=== PATIENT | female | born 1950 | race Caucasian/White ===

== ENCOUNTER 2016-09-12 05:27 | Emergency (ER) | payer MEDICARE, BC ==
--- NOTE | ~2016-09-12 | CR63 ---
[facility] A Service of [facility] RADIOLOGY TEXT RESULTS PATIENT: DENTON ROLDAN LOCATION: [facility] : [birth year] UNIT #: [id number] AGE: [address]: Broderick Bleu SEX: F ORDER DR: [id number] [facility]. [place], [place] [address] [id number] MR#: [id number] Acc #: [id number] NAME: DENTON ROLDAN : 1950 SEX: F STUDY DATE/TIME: 09/12/2016 4:38 UNIT: [facility] ROOM: STUDY DESCRIPTION: CR Chest 2 View Attending Physician: Broderick Blue P.A.-C. Ordering Physician: Broderick Blue P.A.-C. Primary Care Physician: Gerard Vigil M.D. MEDICAL IMAGING REPORT This report is preliminary unless electronic signature is present EXAM Frontal and lateral views the chest 09/12/2016 INDICATIONS Cough in a 66-year-old female with shortness of air for 3 days, hypertension. TECHNIQUE Two-view chest was performed. COMPARISON: 12/23/2015 FINDINGS Cardiac silhouette is borderline in size. Lung volumes are low and there is bronchovascular crowding with probable faint atelectasis or less likely faint infiltrates in the lower lung zones bilaterally. No pneumothorax. No effusion. IMPRESSION 1. Borderline cardiac size with low lung volumes. Faint atelectasis or less likely infiltrates in the mid and lower lung zones bilaterally. Dictated by... Will Wiggins M.D. THIS IS AN ELECTRONICALLY VERIFIED REPORT Will Wiggins M.D. at 09/12/2016 10:00 PM [place] TD: 09/12/2016 10:12 JOB #: [id number] [facility] A Service of [facility] RADIOLOGY TEXT RESULTS PATIENT: DENTON ROLDAN LOCATION: [place] : [birth year] UNIT #: [id number] AGE: [address]: Broderick Blue PAC SEX: F ORDER DR: MEDICAL IMAGING REPORT Page 1 of 1 COPY
[2016-09-12 04:54] LABS: INFLUENZA A NEG (NEG); INFLUENZA B NEG (NEG)
[~2016-09-12 05:27] MED LIST: ALPRAZOLAM; AUGMENTIN875 MG DOB; AVAPRO150 MG PO; B12 PO; B6100 MG PO; CALTRATE 600+D PO; CHROMIUM400 MCG PO; FENOFIBRATE145 M1 PO; FISH OIL 1,2001 EAC5 PO; FLAGYL PO; HYDROCHLOROTH12.5 MG PO; HYDROCODON-ACE1 EAC7 PO; LEVAQUIN PO; LEVAQUIN750 M1 PO; MONTELUKAST SOD10 MG PO; OMEPRAZOLE20 M1 PO; ONDANSETRON ODT4 MG PO; OSTEO BI-FLEX1 EAC1 PO; VERAPAMIL ER180 M1 PO; VERAPAMIL ER180 MG PO; VITAMIN E400 UNI4 PO; WELCHOL625 M1 PO; ZYRTEC
== END 2016-09-12 05:37 | disposition home or self-care (01) ==
LOC: CED 05:27
PROVIDERS: Physician Assistant
DX: J20.9 Acute bronchitis, unspecified (principal); J06.9 Acute upper respiratory infection, unspecified; I10 Essential (primary) hypertension; Z90.89 Acquired absence of other organs; Z88.8 Allergy status to other drugs, medicaments and biological substances; Z79.899 Other long term (current) drug therapy
CPT/HCPCS: 71020; 87804; 99283

== ENCOUNTER 2017-01-17 18:03 | Emergency (ER) | payer MEDICARE, BC ==
[~2017-01-17] VITALS: Ht 152.4 cm; Wt 69.4 kg
--- NOTE | ~2017-01-17 | CT2 ---
[facility] A Service of [facility] & [facility] RADIOLOGY TEXT RESULTS PATIENT: DENTON ROLDAN LOCATION: [facility] : [birth year] UNIT #: [id number] AGE: [address]: Lyndon Mayfield MD SEX: F ORDER DR: [id number] [facility] [address] [place], [place] [address] [id number] E MR#: [id number] Acc #: [id number] NAME: DENTON ROLDAN : 1950 SEX: F STUDY DATE/TIME: 01/17/2017 21:54 UNIT: [facility] ROOM: STUDY DESCRIPTION: CT Abd and Pelv W Cont Attending Physician: Lyndon Mayfield M.D. Ordering Physician: Lyndon Mayfield M.D. Primary Care Physician: Gerard Vigil M.D. MEDICAL IMAGING REPORT This report is preliminary unless electronic signature is present EXAM CT abdomen and pelvis with IV contrast. HISTORY Abdomen pain and swelling for 1 week. Mid and low abdomen pain. Prior diverticulitis. TECHNIQUE This CT exam was performed with one or more of the following radiation dose reduction techniques: automatic exposure control, adjustment of mA and/or kV according to patient size, and iterative reconstruction. FINDINGS CT of abdomen and pelvis was performed with IV contrast. CT ABDOMEN: Very small hiatal hernia. No hepatic mass or biliary dilatation. The gallbladder, spleen, pancreas, and adrenal glands are normal. Mild bilateral hydronephrosis. No bowel dilatation. Normal caliber abdominal aorta. CT PELVIS: Moderate urinary bladder distension measuring over 15 cm in length. This likely is related to the bilateral mild hydronephrosis. Evaluate for bladder outlet obstruction. There is [id number] pericolonic stranding about the mid sigmoid colon in the left pelvis with associated fairly extensive sigmoid diverticulosis. Findings are characteristic of mild diverticulitis. No adjacent abscess. No free fluid. No bowel dilatation. Hysterectomy. 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 IMPRESSION 1. Sigmoid diverticulitis with [id number] pericolonic stranding adjacent to the mid sigmoid colon and the left pelvis. Associated STS. [facility] A Service of [facility] & [facility] RADIOLOGY TEXT RESULTS PATIENT: DENTON ROLDAN LOCATION: [facility] : 48 UNIT #: [id number] AGE: [address]: Lyndon Mayfield MD SEX: F ORDER DR: sigmoid diverticulosis. No abscess or adjacent fluid collection. 2. Moderate urinary bladder distension with mild bilateral hydronephrosis. Consider bladder outlet obstruction. 3. No acute findings on the remainder of the study. Dictated by... Adam Simental M.D. THIS IS AN ELECTRONICALLY VERIFIED REPORT Adam Simental M.D. at 01/18/2017 4:33 PM MAYE/darrell TD: 01/17/2017 23:43 JOB #: [id number] MEDICAL IMAGING REPORT Page 1 of 1 COPY
[2017-01-17 18:26] LABS: BASOPHIL% 0.3 % (0-2.5); EOSINOPHIL# 0.2 X10e3 (0-0.7); EOSINOPHIL% 2.2 % (0.0-7.0); HEMATOCRIT 38.1 % (35.0-45.0); HEMOGLOBIN 12.8 gm/dL (12.0-16.0); LYMPHOCYTE# 1.8 X10e3 (1.0-3.5); LYMPHOCYTE% 24.7 % (17.0-45.0); MEAN CELL VOLUME 83.9 FL (83-96); MEAN CORPUSCULAR HEMOGLOBIN 28.1 PG (28-34); MEAN CORPUSCULAR HGB CONC 33.5 g/dL (30-36); MEAN PLATELET VOLUME 8.5 FL (6.5-11.5); MONOCYTE# 0.6 X10e3 (0-1.0); MONOCYTE% 7.6 % (3.0-12.0); NEUTROPHIL# 4.8 X10e3 (1.5-7.1); NEUTROPHIL% 65.2 % (40-75); PLATELET COUNT 173 X10e3 (140-420); RED BLOOD COUNT 4.54 X10e (3.90-5.30); RED CELL DISTRIBUTION WIDTH 13.6 % (11.0-15.5); WHITE BLOOD COUNT 7.3 X10e3 (4.0-10.5)
[2017-01-17 18:27] LABS: DIFF IND NO
[2017-01-17 18:53] LABS: BILIRUBIN, DIRECT 0.1 mg/dL (0.0-0.2); BILIRUBIN,INDIRECT 0.3 mg/dL (0.0-0.9); BILIRUBIN,TOTAL 0.4 mg/dL (0.2-2.0); BUN/CREATININE RATIO 18.88; CALCIUM SERUM 9.1 mg/dL (8.4-10.2); CREATININE SERUM 0.9 mg/dL (0.6-1.4); GLOM FILT RATE Estimated 66.2 mL/min (>60); POTASSIUM 3.2 mmol/L (3.5-5.1); PROTEIN TOTAL SERUM 6.9 g/dL (6.0-8.3)
[2017-01-17 20:56] LABS: URINE SOURCE CLEAN CATCH
[2017-01-17 20:59] LABS: URINE APPEARANCE CLEAR; URINE BILIRUBIN NEG (NEG); URINE BLOOD NEG (NEG); URINE COLOR YELLOW; URINE GLUCOSE NORM (NORM); URINE KETONE NEG (NEG); URINE LEUKOCYTE ESTERASE NEG (NEG); URINE NITRATE NEG (NEG); URINE PROTEIN NEG (NEG); URINE SPECIFIC GRAVITY 1.015 (1.003-1.035); URINE UROBILINOGEN NORM (NORM)
[2017-01-17 21:01] LABS: CULTURE INDICATED? NO
== END 2017-01-18 01:21 | disposition home or self-care (01) ==
LOC: CED 18:03
DX: K57.32 Diverticulitis of large intestine without perforation or abscess without bleeding (principal); K21.9 Gastro-esophageal reflux disease without esophagitis; I10 Essential (primary) hypertension; Z90.710 Acquired absence of both cervix and uterus
CPT/HCPCS: 36415; 74177; 80048; 80076; 81003; 83690; 85025; 96361; 96365; 96367; 96375; 99284; J0696; J2270; J2405; Q9967